=== PATIENT | male | born 1975 | race Caucasian/White ===

== ENCOUNTER 2019-02-11 18:05 | Emergency (ER) | payer MEDICAID ==
[~2019-02-11] VITALS: Ht 170.2 cm; Wt 77.0 kg
[2019-02-11 18:18] VITALS: BP 134/77
[2019-02-11] MEDS ORDERED: LIDOCAINE-MPF 1%, 5ML INFIL ONE (18:30)
[2019-02-11] MEDS ORDERED: LIDOCAINE-MPF 1%, 5ML ONE (18:41)
--- NOTE | 2019-02-11 19:55 | NUR ---
PT DRIVING. D/C'D WITH RX FOR NORCO.
[2019-02-11] MEDS ORDERED: HYDROcodone/APAP 5/325 TABLET PO ONE (20:00)
== END 2019-02-11 19:58 | disposition home or self-care (01) ==
LOC: ED 18:20
DX: S62.652B Nondisplaced fracture of middle phalanx of right middle finger, initial encounter for open fracture (principal); S61.212A Laceration without foreign body of right middle finger without damage to nail, initial encounter; E11.9 Type 2 diabetes mellitus without complications; X58.XXXA Exposure to other specified factors, initial encounter; Y93.89 Activity, other specified; Y92.009 Unspecified place in unspecified non-institutional (private) residence as the place of occurrence of the external cause; Y99.8 Other external cause status
CPT/HCPCS: 12041